=== PATIENT | male | born 1955 | race Caucasian/White ===

== ENCOUNTER → 2016-09-06 | Outpatient (CLI) | payer OTHER ==
[2016-09-06 13:22] LABS: ALT/SGPT 26 U/L (12-78); AST/SGOT 16 U/L (15-37); BLOOD UREA NITROGEN 15 mg/dl (7-18); BUN/CREATININE RATIO 13.9 (10-20); CALCIUM 8.2 mg/dl (8.5-10.1); CARBON DIOXIDE 28 mmol/L (21-32); CHLORIDE 107 mmol/L (98-107); GLUCOSE 134 mg/dl (70-99); POTASSIUM 4.8 mmol/L (3.5-5.1); SODIUM 141 mmol/L (136-145)
[2016-09-06 13:27] LABS: CHOLESTEROL 144 mg/dl (0-200); CHOLESTEROL/HDL RATIO 3.6; HDL CHOLESTEROL 40 mg/dl; LDL CHOLESTEROL CALCULATED 65 mg/dl; TRIGLYCERIDES 194 mg/dl (0-150); VERY LOW DENSITY LIPOPROT CALC 39 mg/dl
[2016-09-06 13:29] LABS: ESTIMATED AVERAGE GLUCOSE 140 mg/dl; HA1C FLAG Normal (Normal)
== END | disposition home or self-care (01) ==
LOC: C.LABMFLN 09:34
PROVIDERS: ATTEND Family Medicine
DX: E11.9 Type 2 diabetes mellitus without complications (principal); E78.00 Pure hypercholesterolemia, unspecified; N40.0 Benign prostatic hyperplasia without lower urinary tract symptoms; Z12.5 Encounter for screening for malignant neoplasm of prostate

== ENCOUNTER → 2017-02-21 | Outpatient (CLI) | payer OTHER ==
[2017-02-21 13:31] LABS: ESTIMATED AVERAGE GLUCOSE 134 mg/dl; HA1C FLAG Normal (Normal)
[2017-02-21 13:40] LABS: ALT/SGPT 32 U/L (12-78); AST/SGOT 21 U/L (15-37); BLOOD UREA NITROGEN 18 mg/dl (7-18); CALCIUM 9.7 mg/dl (8.5-10.1); CARBON DIOXIDE 25 mmol/L (21-32); CHLORIDE 105 mmol/L (98-107); CHOLESTEROL 151 mg/dl (0-200); CREATININE 1.07 mg/dl (0.60-1.40); GLUCOSE 139 mg/dl (70-99); POTASSIUM 4.2 mmol/L (3.5-5.1); SODIUM 138 mmol/L (136-145)
[2017-02-21 13:43] LABS: ALB/GLOB RATIO 1.1 (0.9-2); ALKALINE PHOSPHATASE 81 U/L (45-117); CHOLESTEROL/HDL RATIO 3.6; HDL CHOLESTEROL 42 mg/dl; LDL CHOLESTEROL CALCULATED 72 mg/dl; TRIGLYCERIDES 187 mg/dl (0-150); VERY LOW DENSITY LIPOPROT CALC 37 mg/dl
[2017-02-21 13:52] LABS: RATIO 4.5 mcg/mg (0-30.0)
== END | disposition home or self-care (01) ==
LOC: C.LABMFLN 08:59
PROVIDERS: ATTEND Family Medicine
DX: E78.00 Pure hypercholesterolemia, unspecified (principal); N20.1 Calculus of ureter; N50.9 Disorder of male genital organs, unspecified

== ENCOUNTER 2019-02-19 10:08 | Observation (INO) ==
[2019-02-19] MEDS ORDERED: fentaNYL citrate 100 MCG/2 ML VIAL ONE ×2 (11:14→12:19)
[2019-02-19] MEDS ORDERED: MIDAZOLAM HCL 5 MG/ML 1 ML VIAL ONE ×2 (11:14→12:19)
--- NOTE | 2019-02-19 11:34 | History & Physical Bridge Note ---
Date of Service February 19, 2019 History & Physical Bridge Note I have examined the patient, reviewed the History & Physical and in the interval since the performance of the History & Physical I have noted the following changes of clinical significance: no changes noted. Still in atrial flutter.
--- NOTE | 2019-02-19 11:36 | Pre Anesthesia Assessment ---
Date of Service February 19, 2019 Pre Sedation Assessment Vital Signs Temp Pulse Resp BP Pulse Ox 02/19/19 10:31 37 C 84 20 159/94 H 99 02/19/19 10:29 37 C 84 20 159/94 H 99 Cardiovascular + irregularly irregular Respiratory + respiratory effort normal Pre-Sedation Airway Assessment Smoking Status: Never smoker Hx Sleep Apnea: No Short, Thick Neck: No Thyromental Distance: > or= 3.5 Finger Breadths Oral Cavity: + Chipped Teeth Mallampati Class: II ASA: ASA2 NPO Status Date of Last Intake of Fluids: 02/18/19 Time of Last Intake of Fluids: 23:30 Date of Last Intake of Solid Food: 02/18/19 Time of Last Intake of Solid Foods: 23:30 Procedure Planning Contraindications for Sedation: none Current Medications Reviewed: Yes Notes The planned sedation has been discussed with the patient. Informed Consent was obtained. I have identified the patient, determined the appropriateness of sedation and have assessed the patient immediately prior to the procedure. All medicine(s) and interventions are by my order.
[2019-02-19] MEDS ORDERED: HEPARIN (PORCINE) 1000 UNIT/ML 10 ML (CATH LAB USE ONLY) ONE (11:54)
[2019-02-19] MEDS ORDERED: DiphenhydrAMINE HCL 50 MG/ML VIAL ONE (12:48)
[2019-02-19] MEDS ORDERED: ACETAMINOPHEN 325 MG TAB PO PRN (13:25)
[2019-02-19] MEDS ORDERED: OXYCODONE HCL IR 5 MG TAB (IMMEDIATE RELEASE) PO PRN (13:25)
--- NOTE | 2019-02-19 13:25 | Procedure Note ---
Procedure Note Date of Service February 19, 2019 Note Procedure performed: Ablation of supraventricular tachycardia, complete electrophysiologic testing including pacing from left atrial coronary sinus, programmed stimulation for arrhythmia induction, 3 dimensional electro anatomical mapping Staff automobile technician: Sukhjinder Reed MD Indication: The patient is 63-year-old gentleman with a history of atrial flutter. He continues to have some symptoms with exertion associated with the arrhythmia. He was advised to consider catheter based therapy for cure and treatment of his symptoms. Procedure detail: The patient was informed of the risks benefits and alternatives to the intended procedure. He understood and wished to proceed. He was taken to the electrophysiology suite in a fasting state. Conscious sedation was administered per protocol and the patient was monitored electrocardiographically throughout today's procedure. The right femoral area is prepped and draped in usual sterile fashion. This area was anesthetized using subcutaneous menstruation of xylocaine and Marcaine solution. Right femoral vein was then accessed 3 times using modified Seldinger technique. Sheaths were placed over guidewires at this site use healthy passage of the EP catheters to the respective chambers under fluoroscopic guidance. This included coronary sinus, right ventricular and mapping ablation catheter. Three-dimensional electroanatomical mapping was then performed in order to identify the tachycardia circuit. Entrainment maneuvers were also performed. Once the elements of the tachycardia were identified radiofrequency ablation was performed through the caval tricuspid isthmus until the tachycardia terminated. The patient did go into atrial fibrillation. Additional linear lesions were placed through the caval tricuspid isthmus prior to cardioversion. Subsequent to cardioversion like to physiologic testing was performed in order to characterize patient's baseline conduction system. Attempts at arrhythmia induction using burst atrial pacing and program stimulation was then performed from both the medial and lateral portions of the caval tricuspid isthmus. Electro anatomical mapping was also used in order to confirm bidirectional block through the caval tricuspid isthmus. At the conclusion of the procedure the catheters and sheaths were removed. Hemostasis was achieved at the access sites using manual pressure. The patient tolerated procedure well. There were no immediate complications. Findings: Baseline tachycardia Cycling in the atrium was 240 milliseconds. Pacing from the medial caval tricuspid isthmus revealed concealed entrainment with a slightly long post pacing interval. Pacing from the lateral CS catheter produced manifest entrainment with a long post pacing interval. Electro anatomical mapping confirmed the entire cycle length present in the right atrium with circular activation around the right atrium. Ablation Patient was felt to suffer from typical isthmus dependent right atrial flutter. Linear lesions were placed any power limited mode with an irrigated contact force catheter through the caval tricuspid isthmus. During ablation the patient did transition to an atrial fibrillation. Additional radiofrequency lesions were placed along the same line in the patient was eventually cardioverted. Post ablation electro anatomical mapping and pacing maneuvers confirmed bidirectional block through the caval tricuspid isthmus. Burst pacing from both the medial and lateral portions of the caval tricuspid isthmus down to cycle length of 240 milliseconds failed to induce a tachycardia. Post ablation intervals: Cycling the atrium 880 milliseconds Cycling in the ventricle 880 milliseconds cycle length OR interval 245 milliseconds QRS duration 110 milliseconds QT interval 418 milliseconds AH interval 106 milliseconds HV interval 56 milliseconds Av Wenckebach occurred at 410 milliseconds AV node effective refractory period was 340 milliseconds Retrograde conduction with pacing from the ventricle was dissociated Impression: Successful creation of bidirectional block in the caval tricuspid isthmus rendering typical isthmus dependent right atrial flutter noninducible Prolonged OR interval with prolonged HV interval Otherwise normal intracardiac intervals No inducible tachycardia. No evidence of dual AV lillian physiology or accessory pathway conduction. Coding
--- NOTE | 2019-02-19 13:29 | Post Anesthesia Assessment ---
Date of Service February 19, 2019 Post Sedation Assessment Vital Signs Temp Pulse Resp BP Pulse Ox 02/19/19 10:31 37 C 84 20 159/94 H 99 02/19/19 10:29 37 C 84 20 159/94 H 99 Recovery Score Activity: Moves 4 extremities Respiration: Deep Breath/Cough Circulation: +/-20% PreAnes Value Consciousness: Arouseable (by name) Oxygen Saturation: > 92% On Room Air Discharge Sedation Level of Care: Phase I Post Sedation Plan On clinical assessment, the patient appears to have tolerated the sedation without complications. Patient is recovering as anticipated. Patient will continue to be monitored by nursing and may be discharged when sedation discharge criteria are met per below protocol. Upon Completions of procedure and additional 15 minutes continue every 5 minute vital signs and the P.A.R. score; then discharge to a Phase I or Fast Track to Phase II per the following guidelines: * Discharge Patient to appropriate Phase II area if PAR is 8 or greater or return to pre- procedure baseline. The post - procedure orders will be as directed. * If PAR score is less than 8 or not return to pre-procedure baseline then patient will follow Phase I monitoring till PAR is reached for Phase II. The Phase I may be done in procedure room or may call to secure a Phase I area. * If naloxone or flumazenil are used for reversal, hold in Phase I for continued monitoring from when last reversal dose was given for a minimum of 60 minutes or longer pending the nurse and/or physician discretion of patient condition before discharge to Phase II. Please call the Sedation Physician to re-evaluate and complete post-note for discharge to Phase II area. Do NOT discharge from procedure sedation or Phase 1 until post- sedation evaluation note is complete by procedure /sedation MD Sedation Discharge Instructions to be given to the patient at discharge to home.
[2019-02-19] MEDS ORDERED: ZOLPIDEM TARTRATE 5 MG TAB PO PRN (16:52)
[2019-02-19] MEDS ORDERED: ONDANSETRON INJ 2 MG/ML 2 ML VIAL IV PRN (16:52)
[2019-02-19] MEDS ORDERED: LOVASTATIN 20 MG TAB PO SCH (17:00)
[2019-02-19] MEDS: METFORMIN HCL 500 MG TAB PO SCH (18:00)
[2019-02-19] MEDS: METOPROLOL TARTRATE 100 MG TAB PO SCH (20:46)
[2019-02-19] MEDS: APIXABAN 5 MG TABLET PO SCH (20:46)
[2019-02-19] MEDS: GABAPENTIN 100 MG CAP PO SCH (20:46)
[2019-02-20] MEDS: GABAPENTIN 100 MG CAP PO SCH ×2 (08:23→15:02)
[2019-02-20] MEDS: APIXABAN 5 MG TABLET PO SCH (08:23)
[2019-02-20] MEDS: METOPROLOL TARTRATE 100 MG TAB PO SCH (08:24)
[2019-02-20] MEDS: METFORMIN HCL 500 MG TAB PO SCH (08:24)
[2019-02-20] MEDS ORDERED: ASPIRIN 81 MG CHEW PO STA (08:25)
[2019-02-20] MEDS ORDERED: lisinopriL 10 MG TAB PO SCH (09:00)
[2019-02-20] MEDS ORDERED: TAMSULOSIN HCL 0.4 MG CAP PO SCH (09:00)
--- NOTE | 2019-02-20 14:12 | Discharge Summary ---
Date of Service February 20, 2019 Admission HPI Per Admitting Provider Patient is 63-year-old gentleman with a history of symptomatic atrial flutter Principal Diagnosis q Discharge Exam At the time discharge the patient has been ambulatory without symptoms. No evidence of bleeding or hematoma at the right groin access site. Discharge Data Allergies Allergy/AdvReac Type Severity Reaction Status Date / Time No Known Drug Allergies Allergy Verified 02/13/19 11:47 Procedures Performed Operation Date: 02/19/19 11:30 Actual Procedures p EPS + Ablation for SVT Flutter - Dany Reed MD s 3D Mapping (Carto) - Dany Reed MD s Cardioversion - Dany Reed MD Ordered Studies 02/19/19 11:15 EP Lab Images for PACS ONCE Hospital Course (1) Atrial flutter: On the day of admission the patient underwent electrophysiologic testing and ablation typical isthmus dependent right atrial flutter. The procedure was uncomplicated. Patient was ambulatory that evening and feeling well. He elected to stay overnight in the hospital primarily for convenience purposes. The following morning he did have some symptoms of pleuritic chest pain. This was primarily around the epigastrium and worsened with deep inspiration. There was some positional component as well. EKG obtained that time and later during his admission did not reveal any evidence of injury or ischemia. An echocardiogram did not demonstrate any wall motion abnormalities. The patient's symptoms responded promptly to administration of aspirin. At the time of discharge he was ambulatory without symptoms of chest discomfort. His symptoms are most likely related to some pericarditis or myocarditis related to his procedure today prior. He did not appear to have an acute coronary syndrome. He was not hypoxic or tachypneic suggestive of pulmonary embolus. There is no evidence of right ventricular strain on echocardiography. Total Time Total Time Spent Total Time Spent (In Minutes): 10 Discharge Plan Discharge Items Patient Disposition: Home - Self-Care Reason For Visit: Atrial Flutter Discharge Diagnosis: Atrial flutter Activity: Per Instructions section Lifting: No more than 10 pounds Lifting Comment: For 5 days Bathing: No limitations Exercise/Sports: Rest today and Gradually increase as tolerated Driving/Machine Use: No limitations Non-emergency contact: Guest Room Inspector Call non-emergency contact if: you have any medication questions, your symptoms worsen and your pain is not controlled Follow-up/Referrals: Anderson Olguin MD [Primary Care Provider] - Diet: Carb Consistent or DM2 Addtl Attending Provider Instructions: No lifting over 10 lb or straining for 5 days Take colchicine, aspirin and pantoprazole for 5 days. Pending Studies at Discharge: No Stand-Alone Forms: My [facility] [employer], Smoking Cessation Medications and DC Order Prescriptions: New metoprolol succinate 100 mg tablet extended release 24 hr 100 mg PO DAILY Qty: 30 RF: 0 colchicine 0.6 mg capsule 0.6 mg PO BID Qty: 10 RF: 0 pantoprazole 20 mg tablet,delayed release (DR/EC) 20 mg PO DAILY Qty: 14 RF: 0 aspirin 325 mg tablet,delayed release (DR/EC) 650 mg PO BID Qty: 20 RF: 0 Continued gabapentin 100 mg capsule 200 mg PO TID Qty: 540 RF: 3 tamsulosin 0.4 mg capsule 0.8 mg PO DAILY Qty: 180 RF: 3 metformin 1,000 mg tablet 1,000 mg PO BID Qty: 180 RF: 3 Eliquis 5 mg tablet 5 mg PO BID Qty: 180 RF: 3 FreeStyle Test strip .ROUTE .MEDSUPPLY Qty: 200 RF: 3 lancets [FreeStyle Lancets] 28 gauge misc .ROUTE .MEDSUPPLY Qty: 200 RF: 3 lisinopril 10 mg tablet 10 mg PO DAILY Qty: 90 RF: 3 lovastatin 40 mg tablet 40 mg PO DAILY Qty: 90 RF: 3 Discontinued metoprolol tartrate 50 mg tablet 150 mg PO BID Qty: 540 RF: 3 Discharge Orders: Discharge Order (Routine); Ordered 02/20/19 Ordered By: Dany Leach/Other Patient Handouts: Diabetes Librarian Special Library Complications, Diabetes Healthy Meals, Diabetes Carbs, Diabetes Exercise Benefits, Diabetes Exercise Get Started, Diabetes Activity Tips Admission Data Admit Date/Time: 02/19/19 13:25 Attending Provider: Dany Reed Admit Provider: Dany Reed Primary Care Provider: Anderson Olguin
--- NOTE | 2019-02-26 14:51 | Procedure Note ---
Procedure Note Date of Service February 19, 2019 Note Procedure performed: Ablation of supraventricular tachycardia, 3 dimensional electro anatomical mapping, arrhythmia induction on and off isoproterenol, complete electrophysiologic testing including pacing from the left atrium via the coronary sinus. Staff terrazzo supervisor: Sukhjinder Reed MD Indication: Patient is a 63-year-old gentleman with a history of sustained atrial flutter. He continues to have symptoms of exertional intolerance and was advised to consider catheter based therapy for cure. Procedure in detail: The patient was informed of the risks benefits and alternatives to the intended procedure. He understood and wished to proceed. He was taken to the electrophysiology suite in a fasting state. Conscious sedation was administered per protocol the patient was monitored electrocardiographically throughout today's procedure. The right femoral area is prepped and draped in usual fashion. This area was anesthetized using subcutaneous administration of a lidocaine solution. The right femoral vein was subsequently access using modified Seldinger technique and sheaths were placed over guidewires at this site. The she saw use of facilitate passage of the EP catheters to their respective chambers under fluoroscopic guidance. This included right ventricular, coronary sinus and roving mapping catheter. Patient presented in a tachycardia. Three-dimensional electro anatomical mapping was performed in order to define the right atrial anatomy and the mechanism of the arrhythmia. Standard entrainment maneuvers were also employed. Once the elements of the tachycardia were known, radiofrequency ablation was performed in linear fashion through the caval tricuspid isthmus. The patient did develop atrial fibrillation during this portion of the procedure. Additional linear lesions were placed prior to cardioversion. Subsequent to cardioversion attempts at arrhythmia induction were performed on and off isoproterenol employing burst atrial pacing from both the medial and lateral aspects of the caval tricuspid isthmus. Repeat electro anatomical mapping was also performed and pacing employed in order to confirm bidirectional block through the caval tricuspid isthmus. Patient's baseline conduction system was also characterized prior to removal of the catheters and sheaths. Hemostasis was achieved at the access sites using manual pressure. The patient tolerated the procedure well. There were no immediate complications. Findings: Baseline tachycardia Tachycardia cycle length was 240 milliseconds Pacing from medial and lateral aspects of the caval tricuspid isthmus revealed concealed entrainment with short post pacing intervals. Pacing from the distal coronary sinus resulted in manifest entrainment with long post pacing interval Three-dimensional electro anatomical mapping also revealed complete cycle length contained in the right atrium At this point it was felt that the patient suffered from typical isthmus dependent right atrial flutter Ablation: A 3.5 millimeter irrigated radiofrequency ablation catheter was used any power limited mode to perform linear ablation through the caval tricuspid isthmus. Tachycardia induction: Attempts to induce the tachycardia subsequent to ablation involved isoproterenol infusion and burst atrial pacing from both the lateral and medial aspects of the caval tricuspid isthmus down to cycle length of 240 milliseconds Post ablation intervals: Cycling in the atrium 1020 milliseconds Cycling in the ventricle 1029 milliseconds NC interval 223 milliseconds QRS duration 127 milliseconds QT interval 416 milliseconds AH interval 120 milliseconds HV interval 48 milliseconds Av Wenckebach occurred at 410 milliseconds The AV node effective refractory period was 340 milliseconds Retrograde conduction was dissociated Impression: Successful creation bidirectional block through the caval tricuspid isthmus rendering typical right atrial isthmus dependent flutter noninducible Prolonged NC interval and right bundle branch block in the baseline state No evidence of dual AV lillian physiology Coding
== END 2019-02-20 15:03 | disposition home or self-care (01) ==
LOC: 2S 10:08 → EP 10:08